=== PATIENT | female | born 1995 | race Caucasian/White ===

== ENCOUNTER 2019-08-23 16:38 | Emergency (ER) | payer MEDICAID ==
[~2019-08-23] VITALS: Ht 157.5 cm; Wt 54.5 kg
[2019-08-23 16:51] VITALS: Ht 157.5 cm; Wt 54.5 kg
[2019-08-23] MEDS ORDERED: MICONAZOLE NITR28 GM TOPICAL (17:37)
[2019-08-23] MEDS ORDERED: VISTARIL50 MG PO (17:37)
[2019-08-23] MEDS ORDERED: DIFLUCAN200 MG PO (17:37)
[2019-08-23 17:47] VITALS: BP 140/80
== END 2019-08-23 17:51 | disposition home or self-care (01) ==
LOC: D.ER 16:38
DX: B35.4 Tinea corporis (principal)

== ENCOUNTER 2019-08-27 17:04 | Emergency (ER) | payer MEDICAID ==
[~2019-08-27] VITALS: Ht 157.5 cm; Wt 54.5 kg
[~2019-08-27 17:04] MED LIST: DIFLUCAN200 MG PO; MICONAZOLE NITR28 GM TOPICAL; VISTARIL50 MG PO
[2019-08-27 17:31] VITALS: Ht 157.5 cm; Wt 54.5 kg
[2019-08-27] MEDS ORDERED: BACLOFEN20 M1 PO (21:17)
[2019-08-27] MEDS ORDERED: VOLTAREN75 MG PO (21:17)
[2019-08-27 22:07] VITALS: BP 137/73
== END 2019-08-27 22:07 | disposition home or self-care (01) ==
LOC: D.ER 17:04
DX: Z04.71 Encounter for examination and observation following alleged adult physical abuse (principal); M54.2 Cervicalgia; F17.210 Nicotine dependence, cigarettes, uncomplicated

== ENCOUNTER 2020-01-28 13:54 | Emergency (ER) | payer MEDICAID ==
[~2020-01-28] VITALS: Ht 157.5 cm; Wt 55.9 kg
[~2020-01-28 13:54] MED LIST changes: +BACLOFEN20 M1 PO; +VOLTAREN75 MG PO
[2020-01-28 13:59] VITALS: BP 156/82; Ht 157.5 cm; Wt 55.9 kg
== END 2020-01-28 14:40 | disposition home or self-care (01) ==
LOC: D.ER 13:54
DX: N64.89 Other specified disorders of breast (principal)

== ENCOUNTER 2020-03-02 16:49 | Emergency (ER) | payer MEDICAID ==
[~2020-03-02] VITALS: Ht 157.5 cm; Wt 55.5 kg
[2020-03-02 16:59] VITALS: BP 154/83; Ht 157.5 cm; Wt 55.5 kg
[2020-03-02] MEDS ORDERED: PENICILLIN V P500 MG PO (17:11)
== END 2020-03-02 17:26 | disposition home or self-care (01) ==
LOC: D.ER 16:49
DX: K08.89 Other specified disorders of teeth and supporting structures (principal); Z72.0 Tobacco use